=== PATIENT | male | born 1945 | race Caucasian/White ===

== ENCOUNTER 2017-12-22 02:48 | Inpatient (IN) | payer OTHER ==
[~2017-12-22] VITALS: Ht 180.3 cm; Wt 85.1 kg
[2017-12-22 03:34] LABS: BASOPHIL (%) 0.3 % (0-1); BASOPHIL COUNT 0.1 K/uL (0-0.1); EOSINOPHIL (%) 0.6 % (0-5); EOSINOPHIL COUNT 0.1 K/uL (0-0.3); HEMOGLOBIN 13.9 G/DL (12.5-16.6); IMMATURE GRANULOCYTE (%) 0.5 % (0.0-0.7); LYMPHOCYTE (%) 7.3 % (15-42); LYMPHOCYTE COUNT 1.1 K/uL (1.0-2.8); MCH 30.7 PG (29.0-34.0); MCHC 33.1 G/DL (30.0-36.0); MCV 92.7 FL (86-99); MONOCYTE (%) 6.8 % (3-12); NEUTROPHIL (%) 84.5 % (45-76); NEUTROPHIL COUNT 12.5 K/uL (1.8-6.4); PLATELET COUNT 213 K/uL (156-360); RBC DIS.WIDTH-CV 17.2 % (11.8-14.6); RBC DIS.WIDTH-SD 58.6 % (39-53); RED BLOOD COUNT 4.53 M/uL (4.00-5.50); WHITE BLOOD COUNT 14.7 K/uL (4.1-10.2)
[2017-12-22 03:41] LABS: INTER. NORMALIZED RATIO 1.2
[2017-12-22 03:47] LABS: CHLORIDE 104 mEq/L (99-109); MAGNESIUM 1.5 mg/dL (1.3-2.7); POTASSIUM 4.8 mEq/L (3.7-5.4); SODIUM 137 mEq/L (136-147)
[2017-12-22 03:49] LABS: GLUCOSE 188 mg/dL (70-99)
[2017-12-22 03:51] LABS: TOTAL BILIRUBIN 1.7 mg/dL (0.0-1.0)
[2017-12-22 03:53] LABS: ALKALINE PHOSPHATASE 449 IU/L (3-129); CREATININE 1.7 mg/dL (0.6-1.3); GFR ESTIMATE (CALCULATED) 43 mL/min/ (58.99-99999)
[2017-12-22 03:54] LABS: AST (GOT) 119 IU/L (2-34); UREA NITROGEN (BUN) 24 mg/dL (9-23)
[2017-12-22 03:56] LABS: ALT (GPT) 107 IU/L (3-49); CREATINE KINASE 54 IU/L (1-294); LIPASE 127 U/L (1.0-51.0); TOTAL CK 54 IU/L (1-294); TROP-I INTERPRETATION NEGATIVE; TROPONIN-I < 0.01 ng/mL (0.0-0.30)
[2017-12-22 04:02] LABS: CK-MB 1.3 ng/mL (0.0-4.9); CKMB RELATIVE INDEX 2.4 (0.0-3.9)
[2017-12-22] MEDS ORDERED: VITAMIN D5000 UNI1 PO (07:13)
[2017-12-22] MEDS ORDERED: MAG-OXIDE400 MG PO (07:14)
[2017-12-22] MEDS ORDERED: UROXATRAL10 MG PO (07:14)
[2017-12-22] MEDS ORDERED: ASPIRIN81 M2 PO (07:14)
[2017-12-22] MEDS ORDERED: ELIQUIS5 MG PO (07:15)
[2017-12-22] MEDS ORDERED: FINASTERIDE5 MG PO (07:15)
[2017-12-22] MEDS ORDERED: ATORVASTATIN CA80 MG PO (07:16)
[2017-12-22] MEDS ORDERED: TOPROL XL50 MG PO (07:17)
[2017-12-22] MEDS ORDERED: NITROGLYCERIN0.4 MG SL (07:18)
[2017-12-22] MEDS ORDERED: PANTOPRAZOLE SO20 MG PO (07:18)
[2017-12-22 16:11] VITALS: BP 190/84
[2017-12-22 19:55] VITALS: BP 97/56
[2017-12-22 23:35] VITALS: BP 105/58
[2017-12-23 03:35] VITALS: BP 113/60
[2017-12-23 06:28] LABS: ALBUMIN 3.1 G/DL (3.2-4.8); ALKALINE PHOSPHATASE 289 IU/L (3-129); ALT (GPT) 87 IU/L (3-49); AST (GOT) 83 IU/L (2-34); CHLORIDE 106 MEQ/L (99-109); GFR ESTIMATE (CALCULATED) 30 mL/min/ (58.99-99999); GLUCOSE 162 mg/dL (70-99); SODIUM 139 MEQ/L (136-147); TOTAL BILIRUBIN 4.2 MG/DL (0.0-1.0); TOTAL PROTEIN 5.4 G/DL (6.4-8.3)
[2017-12-23 06:31] LABS: CREATININE 2.3 MG/DL (0.6-1.3); UREA NITROGEN (BUN) 39 mg/dL (9-23)
[2017-12-23 06:59] LABS: HEMATOCRIT 37.3 % (38.0-50.0); HEMOGLOBIN 12.4 G/DL (12.5-16.6); MCH 30.6 PG (29.0-34.0); MCHC 33.2 G/DL (30.0-36.0); MCV 92.1 FL (86-99); RBC DIS.WIDTH-CV 17.3 % (11.8-14.6); RED BLOOD COUNT 4.05 M/uL (4.00-5.50); WHITE BLOOD COUNT 23.6 K/uL (4.1-10.2)
[2017-12-23 07:36] LABS: PLAT.SUFFICIENCY DECREASED
[2017-12-23 07:38] VITALS: BP 127/58
[2017-12-23 07:42] LABS: PLATELET COUNT 146 K/uL (156-360)
[2017-12-23 12:00] VITALS: BP 156/74
[2017-12-23 16:22] VITALS: BP 155/74
[2017-12-23 18:29] LABS: APPEARANCE CLOUDY ((CLEAR)); BILIRUBIN SMALL; BLOOD SMALL; COLOR AMBER ((YELLOW)); GLUCOSE (STRIP) NEGATIVE; KETONES NEGATIVE; LEUKOCYTES LARGE; NITRITE NEGATIVE; PROTEIN (STRIP) 30; SPECIFIC GRAVITY 1.032 (1.000-1.030)
[2017-12-23 19:20] LABS: EPITHELIAL CELLS RARE /HPF; MUCUS RARE /LPF; RED BLOOD CELLS 0-5 /HPF (0-5); WHITE BLOOD CELLS 30-40 /HPF (0-5)
[2017-12-23 19:21] LABS: AMORPHOUS URATES CRYSTALS 1+; BACTERIA 2+ /HPF; UCUL ADDED? YES
[2017-12-23 20:45] VITALS: BP 146/68
[2017-12-23 23:52] VITALS: BP 128/69
[2017-12-24 06:46] LABS: ALBUMIN 2.8 G/DL (3.2-4.8); ALT (GPT) 86 IU/L (3-49); AST (GOT) 73 IU/L (2-34); CHLORIDE 106 MEQ/L (99-109); GLUCOSE 184 mg/dL (70-99); POTASSIUM 4.9 MEQ/L (3.7-5.4); SODIUM 137 MEQ/L (136-147); TOTAL PROTEIN 5.6 G/DL (6.4-8.3); UREA NITROGEN (BUN) 51 mg/dL (9-23)
[2017-12-24 06:49] LABS: ALKALINE PHOSPHATASE 210 IU/L (3-129); BASOPHIL (%) 0.2 % (0-1); CREATININE 2.8 MG/DL (0.6-1.3); EOSINOPHIL (%) 0 % (0-5); GFR ESTIMATE (CALCULATED) 24 mL/min/ (58.99-99999); HEMATOCRIT 35.8 % (38.0-50.0); HEMOGLOBIN 12.1 G/DL (12.5-16.6); IMMATURE GRANULOCYTE (%) 1.1 % (0.0-0.7); LYMPHOCYTE COUNT 0.8 K/uL (1.0-2.8); MCHC 33.8 G/DL (30.0-36.0); MCV 91.8 FL (86-99); MONOCYTE (%) 4.8 % (3-12); NEUTROPHIL (%) 89.9 % (45-76); NEUTROPHIL COUNT 17.8 K/uL (1.8-6.4); PLATELET COUNT 139 K/uL (156-360); RBC DIS.WIDTH-CV 17.4 % (11.8-14.6); RBC DIS.WIDTH-SD 58.7 % (39-53); TOTAL BILIRUBIN 1.8 MG/DL (0.0-1.0); WHITE BLOOD COUNT 19.8 K/uL (4.1-10.2)
[2017-12-24 07:37] VITALS: BP 163/71
[2017-12-24 15:25] VITALS: BP 182/80
[2017-12-24 18:00] VITALS: BP 177/78
[2017-12-24 21:39] VITALS: BP 152/69
[2017-12-24 23:32] VITALS: BP 180/68
[2017-12-25 04:15] VITALS: BP 155/73
[2017-12-25 06:38] LABS: BASOPHIL (%) 0.1 % (0-1); EOSINOPHIL (%) 1.1 % (0-5); EOSINOPHIL COUNT 0.2 K/uL (0-0.3); HEMATOCRIT 34.1 % (38.0-50.0); HEMOGLOBIN 11.6 G/DL (12.5-16.6); IMMATURE GRANULOCYTE (%) 0.5 % (0.0-0.7); LYMPHOCYTE (%) 8.5 % (15-42); LYMPHOCYTE COUNT 1.1 K/uL (1.0-2.8); MCH 30.3 PG (29.0-34.0); MONOCYTE (%) 6.5 % (3-12); MONOCYTE COUNT 0.9 K/uL (0-0.8); NEUTROPHIL (%) 83.3 % (45-76); NEUTROPHIL COUNT 11.1 K/uL (1.8-6.4); PLATELET COUNT 136 K/uL (156-360); RBC DIS.WIDTH-CV 17.2 % (11.8-14.6); RBC DIS.WIDTH-SD 55.6 % (39-53); RED BLOOD COUNT 3.83 M/uL (4.00-5.50); WHITE BLOOD COUNT 13.4 K/uL (4.1-10.2)
[2017-12-25 07:12] LABS: ALBUMIN 2.6 G/DL (3.2-4.8); ALKALINE PHOSPHATASE 222 IU/L (3-129); ALT (GPT) 76 IU/L (3-49); AST (GOT) 61 IU/L (2-34); CHLORIDE 109 MEQ/L (99-109); CREATININE 2.5 MG/DL (0.6-1.3); GFR ESTIMATE (CALCULATED) 27 mL/min/ (58.99-99999); GLUCOSE 132 mg/dL (70-99); POTASSIUM 4.5 MEQ/L (3.7-5.4); SODIUM 138 MEQ/L (136-147); UREA NITROGEN (BUN) 48 mg/dL (9-23)
[2017-12-25 07:23] LABS: TOTAL BILIRUBIN 1.1 MG/DL (0.0-1.0)
[2017-12-25 08:35] VITALS: BP 177/81
[2017-12-25 12:17] VITALS: BP 160/75
[2017-12-25 16:37] VITALS: BP 156/75
[2017-12-25 20:00] VITALS: BP 172/78
[2017-12-25 23:35] VITALS: BP 144/71
[2017-12-26] VITALS (9 sets, daily range): BP systolic 132–223; BP diastolic 78–95
[2017-12-26 06:26] LABS: HEMATOCRIT 35.9 % (38.0-50.0); HEMOGLOBIN 12.4 G/DL (12.5-16.6); MCH 30.6 PG (29.0-34.0); MCHC 34.5 G/DL (30.0-36.0); MCV 88.6 FL (86-99); PLATELET COUNT 134 K/uL (156-360); RBC DIS.WIDTH-CV 17.2 % (11.8-14.6); RBC DIS.WIDTH-SD 55.9 % (39-53); RED BLOOD COUNT 4.05 M/uL (4.00-5.50); WHITE BLOOD COUNT 11.7 K/uL (4.1-10.2)
[2017-12-26 06:47] LABS: ALBUMIN 2.7 G/DL (3.2-4.8); ALKALINE PHOSPHATASE 228 IU/L (3-129); ALT (GPT) 66 IU/L (3-49); AST (GOT) 49 IU/L (2-34); CHLORIDE 108 MEQ/L (99-109); DIRECT BILIRUBIN 0.5 mg/dL (0.0-0.3); GFR ESTIMATE (CALCULATED) 35 mL/min/ (58.99-99999); GLUCOSE 115 mg/dL (70-99); POTASSIUM 4.7 MEQ/L (3.7-5.4); SODIUM 139 MEQ/L (136-147); TOTAL BILIRUBIN 1.2 MG/DL (0.0-1.0); TOTAL PROTEIN 5.2 G/DL (6.4-8.3); UREA NITROGEN (BUN) 40 mg/dL (9-23)
[2017-12-26] MEDS ORDERED: DOXAZOSIN MESYLA4 MG PO (11:10)
[2017-12-26] MEDS ORDERED: AMLODIPINE BESYL5 MG PO (11:31)
[2017-12-27] VITALS (7 sets, daily range): BP systolic 129–189; BP diastolic 85–93
[2017-12-27 05:39] LABS: HEMATOCRIT 37.5 % (38.0-50.0); MCH 30.7 PG (29.0-34.0); MCHC 34.7 G/DL (30.0-36.0); MCV 88.4 FL (86-99); PLATELET COUNT 154 K/uL (156-360); RBC DIS.WIDTH-CV 17.2 % (11.8-14.6); RBC DIS.WIDTH-SD 54.9 % (39-53); RED BLOOD COUNT 4.24 M/uL (4.00-5.50); WHITE BLOOD COUNT 10.5 K/uL (4.1-10.2)
[2017-12-27 06:05] LABS: ALBUMIN 2.9 G/DL (3.2-4.8); ALKALINE PHOSPHATASE 237 IU/L (3-129); ALT (GPT) 50 IU/L (3-49); AST (GOT) 32 IU/L (2-34); CHLORIDE 109 MEQ/L (99-109); CREATININE 1.6 MG/DL (0.6-1.3); DIRECT BILIRUBIN 0.3 mg/dL (0.0-0.3); GFR ESTIMATE (CALCULATED) 46 mL/min/ (58.99-99999); GLUCOSE 149 mg/dL (70-99); POTASSIUM 4.8 MEQ/L (3.7-5.4); SODIUM 137 MEQ/L (136-147); TOTAL BILIRUBIN 1.4 MG/DL (0.0-1.0); TOTAL PROTEIN 5.5 G/DL (6.4-8.3); UREA NITROGEN (BUN) 31 mg/dL (9-23)
[2017-12-28 03:57] VITALS: BP 150/76
[2017-12-28 06:02] LABS: HEMATOCRIT 37.8 % (38.0-50.0); HEMOGLOBIN 13.2 G/DL (12.5-16.6); MCH 30.4 PG (29.0-34.0); MCHC 34.9 G/DL (30.0-36.0); MCV 87.1 FL (86-99); PLATELET COUNT 180 K/uL (156-360); RBC DIS.WIDTH-CV 16.8 % (11.8-14.6); RBC DIS.WIDTH-SD 53.5 % (39-53); RED BLOOD COUNT 4.34 M/uL (4.00-5.50); WHITE BLOOD COUNT 11.5 K/uL (4.1-10.2)
[2017-12-28 06:21] LABS: ALKALINE PHOSPHATASE 239 IU/L (3-129); ALT (GPT) 38 IU/L (3-49); AST (GOT) 21 IU/L (2-34); CHLORIDE 105 MEQ/L (99-109); CREATININE 1.4 MG/DL (0.6-1.3); DIRECT BILIRUBIN 0.4 mg/dL (0.0-0.3); GFR ESTIMATE (CALCULATED) 53 mL/min/ (58.99-99999); GLUCOSE 136 mg/dL (70-99); SODIUM 135 MEQ/L (136-147); TOTAL BILIRUBIN 1.3 MG/DL (0.0-1.0); TOTAL PROTEIN 5.5 G/DL (6.4-8.3); UREA NITROGEN (BUN) 24 mg/dL (9-23)
[2017-12-28 08:48] VITALS: BP 130/75
[2017-12-28] MEDS ORDERED: NIFEDIPINE ER30 MG PO (11:29)
[2017-12-28] MEDS ORDERED: APRESOLINE50 MG PO (11:29)
[2017-12-28 13:04] VITALS: BP 143/73
== END 2017-12-28 13:35 | disposition home or self-care (01) | DRG 871 ==
LOC: EME 02:48 → EDBD 02:48 → 4SOUTH 08:32 → EDOF 08:32 → ENRESERV 08:33 → 4SOUTH 12:12
PROVIDERS: Emergency Medicine; Hospitalist; Internal Medicine; Internal Medicine Nephrology; Physician Assistant
PROC: 0FC98ZZ Extirpation of Matter from Common Bile Duct, Via Natural or Artificial Opening Endoscopic (ICD-10-PCS; principal; 2017-12-23)
DX: A41.9 Sepsis, unspecified organism (principal); K80.65 Calculus of gallbladder and bile duct with chronic cholecystitis with obstruction; N17.9 Acute kidney failure, unspecified; K85.10 Biliary acute pancreatitis without necrosis or infection; N18.3 Chronic kidney disease, stage 3 (moderate); T50.8X5A Adverse effect of diagnostic agents, initial encounter; N14.1 Nephropathy induced by other drugs, medicaments and biological substances; N12 Tubulo-interstitial nephritis, not specified as acute or chronic; D69.6 Thrombocytopenia, unspecified; J44.9 Chronic obstructive pulmonary disease, unspecified; I25.10 Atherosclerotic heart disease of native coronary artery without angina pectoris; I48.0 Paroxysmal atrial fibrillation; I12.9 Hypertensive chronic kidney disease with stage 1 through stage 4 chronic kidney disease, or unspecified chronic kidney disease; I73.9 Peripheral vascular disease, unspecified; E78.5 Hyperlipidemia, unspecified; I71.4 Abdominal aortic aneurysm, without rupture; F17.210 Nicotine dependence, cigarettes, uncomplicated; Z95.5 Presence of coronary angioplasty implant and graft; Z95.1 Presence of aortocoronary bypass graft; Z86.79 Personal history of other diseases of the circulatory system; Z86.718 Personal history of other venous thrombosis and embolism; Z79.899 Other long term (current) drug therapy; Z79.82 Long term (current) use of aspirin; Z79.01 Long term (current) use of anticoagulants; I25.2 Old myocardial infarction; Z90.49 Acquired absence of other specified parts of digestive tract
CPT/HCPCS: 71045; 74174; 74328; 80047; 80048; 80053; 80076; 81003; 82550; 82553; 83605; 83690; 83735; 84484; 85025; 85025 91; 85027; 85610; 85730; 87040; 87081; 87086; 90686; 93005; 99281; 99285; C1757; C1769; C9113; J0330; J0360; J1100; J1170; J1885; J1940; J2270; J2405; J2543; J7030; J7042; J7050